=== PATIENT | male | born 1985 | race Caucasian/White ===

== ENCOUNTER 2017-06-21 05:22 | Emergency (ER) | payer BC, OTHER ==
[~2017-06-21] VITALS: Ht 170.2 cm; Wt 59.0 kg
[~2017-06-21 05:22] MED LIST: BACTRIM DS TAB1 EACH PO; FLEXERIL PO; IBUPROFEN 600600 M1 PO; IBUPROFEN 800800 M1 PO; NORCO 5-325 TA1 EACH PO; PENICILLIN V P500 MG PO; PENICILLIN VK500 M1 PO
[2017-06-21 06:11] LABS: ABSOLUTE NEUTROPHILS 7.5 thou/uL (1.4-8.2); BASOPHILS 1.1 % (0.0-2.0); EOSINOPHILS 2.8 % (0.0-3.0); HEMATOCRIT 49.9 % (42.0-52.0); HEMOGLOBIN 17.5 gm/dL (14.0-18.0); LYMPHOCYTES 18.9 % (24.0-44.0); MCH 33.9 pg (26.0-34.0); MONOCYTES 10.3 % (1.0-8.0); PLATELET COUNT 212 thou/uL (150-400); POLYS 66.9 % (36.0-66.0); RBC 5.14 mil/uL (4.50-6.00); RDW 13.5 % (10.5-14.5); WBC 11.3 thou/uL (4.0-11.0)
[2017-06-21 06:19] LABS: CALCIUM 9.9 mg/dL (8.5-10.1); POTASSIUM 3.4 mmol/L (3.5-5.1)
[2017-06-21 06:25] LABS: ALBUMIN 4.6 g/dL (3.4-5.0)
[2017-06-21] MEDS ORDERED: ZOFRAN ODT4 MG PO (07:26)
[2017-06-21] MEDS ORDERED: PHENERGAN 25 MG25 M1 PO (07:26)
[2017-06-21] MEDS ORDERED: PROMS25 WY RECTAL (07:26)
[2017-06-21 07:45] LABS: URINE BILIRUBIN NEGATIVE (Negative); URINE BLOOD NEGATIVE (Negative); URINE COLOR YELLOW; URINE GLUCOSE-RANDOM* NEGATIVE (Negative); URINE KETONES NEGATIVE (Negative); URINE LEUKOCYTES-REFLEX NEGATIVE (Negative); URINE NITRITE-REFLEX NEGATIVE (Negative); URINE PROTEIN (DIPSTICK) NEGATIVE (Negative)
[2017-06-21 07:46] LABS: URINE CLARITY SLIGHTLY CLOUDY
== END 2017-06-21 08:30 | disposition home or self-care (01) ==
LOC: ER 05:22
PROVIDERS: Emergency Medicine
DX: R11.2 Nausea with vomiting, unspecified (principal); R10.84 Generalized abdominal pain; F17.210 Nicotine dependence, cigarettes, uncomplicated; Z88.6 Allergy status to analgesic agent; Z91.013 Allergy to seafood; Z88.5 Allergy status to narcotic agent

== ENCOUNTER 2019-02-26 11:39 | Emergency (ER) | payer BC, OTHER ==
[~2019-02-26] VITALS: Ht 170.2 cm; Wt 68.0 kg
[~2019-02-26 11:39] MED LIST changes: +PHENERGAN 25 MG25 M1 PO; +PROMS25 WY RECTAL; +ZOFRAN ODT4 MG PO
[2019-02-26 12:30] LABS: ABSOLUTE NEUTROPHILS 4.3 thou/uL (1.4-8.2); BASOPHILS 1.1 % (0.0-2.0); EOSINOPHILS 1.8 % (0.0-3.0); HEMATOCRIT 46.8 % (42.0-52.0); HEMOGLOBIN 16.1 gm/dL (14.0-18.0); LYMPHOCYTES 28.1 % (24.0-44.0); MCH 33.1 pg (26.0-34.0); MCHC 34.5 g/dL (28.0-37.0); MCV 96.1 fL (80.0-100.0); MONOCYTES 11.6 % (1.0-8.0); PLATELET COUNT 220 thou/uL (150-400); POLYS 57.4 % (36.0-66.0); RBC 4.87 mil/uL (4.50-6.00); RDW 13.6 % (10.5-14.5); WBC 7.5 thou/uL (4.0-11.0)
[2019-02-26 12:33] LABS: ANION GAP 10 mmol/L (7-16); BUN 9 mg/dL (7-18); CALCIUM 9.3 mg/dL (8.5-10.1); CHLORIDE 102 mmol/L (98-107); CO2 32 mmol/L (21-32); GLUCOSE 99 mg/dL (74-106); POTASSIUM 3.2 mmol/L (3.5-5.1); SODIUM 144 mmol/L (136-145)
[2019-02-26 12:43] LABS: ALBUMIN 4.3 g/dL (3.4-5.0); MAGNESIUM 1.7 mg/dL (1.8-2.4); PHOSPHORUS 2.7 mg/dL (2.5-4.9); SGOT 26 U/L (15-37); SGPT 22 U/L (30-65); TOTAL BILIRUBIN 0.9 mg/dL (<0.1-1.0); TOTAL PROTEIN 7.6 g/dL (6.4-8.2); TROPONIN-I <0.06 ng/mL (<0.06)
[2019-02-26 12:47] LABS: URINE BILIRUBIN NEGATIVE (Negative); URINE BLOOD NEGATIVE (Negative); URINE CLARITY CLEAR; URINE COLOR YELLOW; URINE GLUCOSE-RANDOM* NEGATIVE (Negative); URINE KETONES NEGATIVE (Negative); URINE LEUKOCYTES-REFLEX NEGATIVE (Negative); URINE NITRITE-REFLEX NEGATIVE (Negative); URINE PROTEIN (DIPSTICK) TRACE (Negative)
[2019-02-26 12:52] LABS: APTT 27.1 Seconds (24.5-32.8); PROTIME 10.7 Seconds (9.3-11.4)
[2019-02-26 12:53] LABS: AMP/METHAMP Negative (Negative); BARBITURATES Negative (Negative); BENZODIAZEPINES Negative (Negative); COCAINE Negative (Negative); METHADONE Negative (Negative); OPIATES Negative (Negative); PCP Negative (Negative)
[2019-02-26 15:10] VITALS: BP 145/106
--- NOTE | 2019-02-27 12:36 | EKG ---
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 : 1985 Requested By: Villa Choe Order Number: [id number] MD: El Correa Measurements Intervals [place] Rate: 70 P: SD: QRS: 48 QRSD: 127 T: 56 QT: 396 QTc: 428 Interpretive Statements Sinus rhythm Right ventricular conduction delay No previous ECG available for comparison Electronically Signed On 02-27-2019 12:36:03 CDT by El Correa [email or web address] ��������������������������������������������� <ELECTRONICALLY SIGNED> ���������������������������������������� By: El Correa MD, [facility] ��������������������������������������������� 02/27/19 1236 1140 1140 El Correa MD, FACC /EPI
== END 2019-02-26 15:11 | disposition home or self-care (01) ==
LOC: ER 11:39
PROVIDERS: Emergency Medicine
DX: R07.89 Other chest pain (principal); H53.8 Other visual disturbances; R20.2 Paresthesia of skin; F17.210 Nicotine dependence, cigarettes, uncomplicated; Z91.030 Bee allergy status; Z88.6 Allergy status to analgesic agent

== ENCOUNTER 2019-09-09 23:07 | Emergency (ER) | payer BC, OTHER ==
[~2019-09-09] VITALS: Ht 172.7 cm; Wt 63.5 kg
[2019-09-10 00:32] LABS: BASOPHILS 1.2 % (0.0-2.0); EOSINOPHILS 1.8 % (0.0-3.0); HEMATOCRIT 46.8 % (42.0-52.0); HEMOGLOBIN 16.3 gm/dL (14.0-18.0); LYMPHOCYTES 34.1 % (24.0-44.0); MCHC 34.8 g/dL (28.0-37.0); MCV 91.9 fL (80.0-100.0); MONOCYTES 8.9 % (1.0-8.0); PLATELET COUNT 230 thou/uL (150-400); RBC 5.09 mil/uL (4.50-6.00); WBC 7.3 thou/uL (4.0-11.0)
[2019-09-10 00:33] LABS: URINE BILIRUBIN NEGATIVE (Negative); URINE BLOOD NEGATIVE (Negative); URINE CLARITY CLEAR; URINE COLOR YELLOW; URINE GLUCOSE-RANDOM* NEGATIVE (Negative); URINE KETONES NEGATIVE (Negative); URINE LEUKOCYTES-REFLEX NEGATIVE (Negative); URINE NITRITE-REFLEX NEGATIVE (Negative); URINE PROTEIN (DIPSTICK) NEGATIVE (Negative); URINE SPECIFIC GRAVITY >= 1.030 (1.005-1.035); URINE UROBILINOGEN 0.2 E.U./dl (0.2-1.0)
[2019-09-10 00:44] LABS: ANION GAP 14 mmol/L (7-16); BUN 10 mg/dL (7-18); CALCIUM 9.3 mg/dL (8.5-10.1); CHLORIDE 97 mmol/L (98-107); CO2 25 mmol/L (21-32); CREATININE 0.9 mg/dL (0.7-1.3); GLUCOSE 111 mg/dL (74-106); POTASSIUM 3.1 mmol/L (3.5-5.1); SODIUM 136 mmol/L (136-145)
[2019-09-10 00:47] LABS: AMP/METHAMP Negative (Negative); BARBITURATES Negative (Negative); BENZODIAZEPINES Negative (Negative); COCAINE Negative (Negative); METHADONE Negative (Negative); OPIATES Negative (Negative); PCP Negative (Negative)
[2019-09-10 00:50] LABS: ALBUMIN 4.5 g/dL (3.4-5.0); SGOT 23 U/L (15-37); SGPT 27 U/L (30-65); TOTAL BILIRUBIN 0.7 mg/dL (<0.1-1.0); TOTAL PROTEIN 7.9 g/dL (6.4-8.2)
[2019-09-10 01:05] LABS: SALICYLATE < 2.8 mg/dL (2.8-20.0)
[2019-09-10 18:24] VITALS: BP 135/84
== END 2019-09-10 18:25 ==
LOC: ER 23:07
PROVIDERS: Emergency Medicine
DX: R45.851 Suicidal ideations (principal); F17.200 Nicotine dependence, unspecified, uncomplicated; Z88.6 Allergy status to analgesic agent; Z91.030 Bee allergy status

== ENCOUNTER 2021-01-21 13:42 | Emergency (ER) | payer BC, OTHER ==
[~2021-01-21] VITALS: Ht 170.2 cm; Wt 68.0 kg
[2021-01-21 14:23] LABS: ABSOLUTE NEUTROPHILS 3.7 thou/uL (1.4-8.2); BASOPHILS 1.2 % (0.0-2.0); EOSINOPHILS 2.5 % (0.0-3.0); HEMATOCRIT 44.7 % (42.0-52.0); HEMOGLOBIN 15.5 gm/dL (14.0-18.0); LYMPHOCYTES 30.9 % (24.0-44.0); MCH 32.3 pg (26.0-34.0); MCHC 34.7 g/dL (28.0-37.0); MCV 93.1 fL (80.0-100.0); MONOCYTES 9.4 % (1.0-8.0); PLATELET COUNT 213 thou/uL (150-400); RBC 4.81 mil/uL (4.50-6.00); RDW 13.5 % (10.5-14.5); WBC 6.5 thou/uL (4.0-11.0)
[2021-01-21 14:24] LABS: CALCIUM 9.4 mg/dL (8.5-10.1); CREATININE 1.2 mg/dL (0.7-1.3); POTASSIUM 3.7 mmol/L (3.5-5.1)
[2021-01-21 14:31] LABS: ALBUMIN 4.3 g/dL (3.4-5.0); TOTAL BILIRUBIN 0.7 mg/dL (0.2-1.0); TOTAL PROTEIN 7.9 g/dL (6.4-8.2)
[2021-01-21 15:45] LABS: URINE BILIRUBIN NEGATIVE (Negative); URINE BLOOD NEGATIVE (Negative); URINE CLARITY CLEAR; URINE COLOR YELLOW; URINE GLUCOSE-RANDOM* NEGATIVE (Negative); URINE KETONES NEGATIVE (Negative); URINE LEUKOCYTES-REFLEX NEGATIVE (Negative); URINE NITRITE-REFLEX NEGATIVE (Negative); URINE PROTEIN (DIPSTICK) NEGATIVE (Negative); URINE UROBILINOGEN 0.2 E.U./dl (0.2-1.0)
[2021-01-21 15:56] VITALS: BP 119/81
[2021-01-21] MEDS ORDERED: ZOFRAN ODT4 MG PO (15:56)
== END 2021-01-21 15:56 | disposition home or self-care (01) ==
LOC: ER 13:42
PROVIDERS: Emergency Medicine
DX: R11.2 Nausea with vomiting, unspecified (principal); Z20.822 Contact with and (suspected) exposure to COVID-19; Z88.5 Allergy status to narcotic agent; Z88.6 Allergy status to analgesic agent; Z91.030 Bee allergy status

== ENCOUNTER 2021-06-15 14:58 | Emergency (ER) | payer BC, OTHER ==
[~2021-06-15] VITALS: Ht 170.2 cm; Wt 68.0 kg
[2021-06-15 15:33] VITALS: BP 134/95
[2021-06-15] MEDS ORDERED: NAPROSYN500 MG PO (17:07)
--- NOTE | 2021-06-16 07:34 | EKG ---
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: : 1985 Requested By: Mary Balderas Order Number: [id number] MD: El Correa Measurements Intervals [place] Rate: 80 P: 64 NH: 113 QRS: 61 QRSD: 111 T: 65 QT: 376 QTc: 434 Interpretive Statements Sinus rhythm Borderline short NH interval LVH with IVCD and secondary repol abnrm Nonspecific ST segment abnormality Compared to ECG 02/26/2019 11:40:48 ST (T wave) deviation now present Electronically Signed On 06-16-2021 7:33:58 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
== END 2021-06-15 17:33 | disposition home or self-care (01) ==
LOC: ER 14:58
DX: J06.9 Acute upper respiratory infection, unspecified (principal); Z20.822 Contact with and (suspected) exposure to COVID-19; F17.200 Nicotine dependence, unspecified, uncomplicated; F12.90 Cannabis use, unspecified, uncomplicated; Z79.899 Other long term (current) drug therapy; Z88.5 Allergy status to narcotic agent; Z88.8 Allergy status to other drugs, medicaments and biological substances; Z88.6 Allergy status to analgesic agent; Z91.030 Bee allergy status